=== PATIENT | female | born 2005 ===

== ENCOUNTER 2024-05-03 13:06 | Inpatient (IN) | payer BC, SELFPAY ==
--- NOTE | ~2024-05-03 | NM_ITS ---
EXAMINATION: GALO BILIARY TRACT CLINICAL HISTORY: 18 years old Female with abdominal pain, elevated LFTs TECHNIQUE: 5 mCi Tc-99m Mebrofenin was injected intravenously. Static planar images of the abdomen were obtained in the left anterior oblique views at 60 minutes. 1.1 mcg Sincalide (CCK) was infused intravenously over 30 minutes, while dynamic images of the abdomen were obtained in the left anterior oblique view. COMPARISON: CT abdomen pelvis on 05/03/2024 FINDINGS: There is prompt liver uptake of radiotracer and prompt excretion of radiotracer into bile ducts and small bowel. The gallbladder is visualized within 10 minutes. Gallbladder ejection fraction is 71%. NM/NM hepatobiliary w pharm IMPRESSION: No evidence of acute or chronic cholecystitis. Gallbladder ejection fraction of 71%. Electronically signed by: Shena Escobedo MD 05/06/2024 05:40 PM [facility]
--- NOTE | ~2024-05-03 | CT_ITS ---
EXAMINATION: CT ABDOMEN AND PELVIS WITH CONTRAST CLINICAL INFORMATION: Epigastric abdominal COMPARISON: Ultrasound abdomen earlier today TECHNIQUE: Multidetector volumetric imaging was performed from the superior aspect of the liver through the pubic symphysis with intravenous contrast. A total of 85 mL of Omnipaque 350 was utilized for the study. Sagittal and coronal reformatted images were obtained on the technologist's workstation. This CT examination was performed using dose optimization techniques as appropriate, variously including the following: *Automated exposure control *Adjustment of mA and/or kV according to patient size (this includes techniques or standardized protocols for targeted exams where dose is matched to indication/reason for exam; i.e. extremities or head) *Use of iterative reconstruction technique DLP: 346 mGy-cm FINDINGS: LUNG BASES: The visualized lung bases are unremarkable. LIVER, GALLBLADDER, AND BILIARY TREE: The liver is mildly enlarged at 18.2 cm in greatest length with normal shape. There is mild periportal edema which is nonspecific. No focal hepatic lesion or biliary ductal dilatation is present. The gallbladder is abnormal with a markedly thickened wall and enhancing mucosa, corresponding to the findings seen on the ultrasound. No definite inflammatory changes are seen in the pericholecystic fat. No calcified gallstones are seen. PANCREAS: Unremarkable. SPLEEN: The spleen is enlarged measuring 13.7 cm in greatest length. ADRENAL GLANDS: Unremarkable. KIDNEYS AND URETERS: The kidneys are normal in size, shape, and attenuation. A benign right upper pole 5.3 cm Bosniak class I renal cyst is noted along with some left upper pole parapelvic Bosniak class I cysts. These all require no additional imaging or follow up. No solid renal masses are seen. No hydronephrosis, hydroureter, or calculi seen. No perinephric stranding. BLADDER: Unremarkable. GASTROINTESTINAL TRACT: The small and large bowel are unremarkable. The appendix is likely seen and unremarkable but there is certainly no evidence to suggest the presence of appendicitis.. ABDOMINAL WALL: No significant hernia is appreciated. LYMPH NODES: Normal. VASCULAR: Unremarkable. PELVIC VISCERA: A small amount of free fluid is present in the pelvis. A retroverted uterus is present. A benign appearing 1.6 cm cyst is noted in the left ovary. The right ovary appears unremarkable. OSSEOUS STRUCTURES: Unremarkable. CT/CT abdomen pelvis w IV con IMPRESSION: 1. Abnormal gallbladder with markedly thickened wall and enhancing mucosa. No calcified gallstones are seen. No inflammatory changes are seen in the pericholecystic fat. Findings are certainly suggestive of acute cholecystitis in the correct clinical setting. 2. Mild hepatosplenomegaly. 3. Other incidental findings as described above. Fleischner guidelines were followed. Electronically signed by: Ata Calvert MD 05/04/2024 12:05 AM [facility]
--- NOTE | ~2024-05-03 | US_ITS ---
EXAMINATION: US ABDOMEN LIMITED CLINICAL INFORMATION: Elevated LFTs. COMPARISON: None available. TECHNIQUE: Real-time imaging of the right upper quadrant abdominal viscera. FINDINGS: PANCREAS: Normal. LIVER: Normal. The liver is normal in size. The liver contour is normal. Parenchymal echogenicity is normal. Right liver lobe 4.9 cm cyst. There is no intrahepatic biliary duct dilatation seen. GALLBLADDER: Gallbladder is contracted with pericholecystic fluid with circumferential wall thickening measuring up to 1.4 cm. No sonographic findings of gallstones. Positive sonographic Camargo sign. COMMON BILE DUCT: Normal in caliber measuring 0.2 cm in diameter. RIGHT KIDNEY: Normal. No hydronephrosis. No renal calculi or focal parenchymal lesions. The kidney measures 11 cm in maximum dimension. FREE FLUID: None. US/US abdomen limited IMPRESSION: Gallbladder is contracted with circumferential wall thickening and pericholecystic fluid. No sonographic findings of gallstones. Positive sonographic Cam[place] sign. These findings are equivocal for acute cholecystitis. Electronically signed by: Pat Chua MD 05/03/2024 06:04 PM [facility]
--- NOTE | 2024-05-03 13:09 | ECG_ITS ---
Test Reason : CHEST PAIN Blood Pressure : / mmHG Vent. Rate : 086 BPM Atrial Rate : 086 BPM P-R Int : 146 ms QRS Dur : 076 ms QT Int : 378 ms P-R-T Axes : 068 072 050 degrees QTc Int : 452 ms Normal sinus rhythm Normal ECG No previous ECGs available Referred By: Generic ED Physician Electronically Signed By:RUDDY YIN MD
[2024-05-03 13:30] VITALS: BP 91/52; PULSE 76; RESP 16; TEMP 36.8; O2SAT 100; BMI 20.9
--- NOTE | 2024-05-03 13:49 | ED_ITS ---
HPI - Abdominal Pain General Chief Complaint: Abdominal Pain Stated Complaint: Chest pain Time Seen by Provider: 05/03/24 19:09 Related Data Allergies Allergy/AdvReac Type Severity Reaction Status Date / Time No Known Allergies Allergy Verified 05/03/24 13:33 [facility] Social History Social History Smoked in Last 30 Days: Yes Use of substances other than those prescribed or required for medical reasons: Yes Substance Use Type: Marijuana Advance Directives: No Advance Directives Information Provided: No Do you have a plan to hurt others: No Plan Physical Exam ED Vital Signs: Vital Signs - 24 hr 05/03/24 13:30 05/03/24 19:09 05/03/24 22:50 Temperature 98.3 F 97.9 F 98.5 F Pulse Rate 76 61 68 Respiratory Rate 16 18 18 Blood Pressure 91/52 L 116/66 116/64 Pulse Oximetry 100 100 100 Oxygen Delivery Method Room Air Room Air Room Air BMI result Body Mass Index 20.9 Course Course Course Narrative: This is a Rapid Medical Examination (RME) performed by Verónica Herr PA-C in triage. Full HPI, ROS, assessment and treatment plan per primary provider in the Main ED. 18 yo female here for eval of upper abdominal pain x3 days. denies N/V/D, chest pain, dysuria. denies chance of . LMP 1 wk ago. Plan: ekg ordered initially as patient reported chest pain on arrival. will add on labs, UA, u preg Medical Decision Making Lab Data 05/03/24 14:17 05/03/24 14:17 Labs: Lab Results 05/03/24 Range/Units 14:17 WBC 9.0 (4.8-10.8) X10*3/uL RBC 4.40 (4.20-5.50) X10*6/uL Hgb 10.9 L (12.0-16.0) g/dl Hct 34.6 L (37.0-47.0) % MCV 78.6 L (80.0-98.0) fL MCH 24.8 L (27.0-33.0) pg MCHC 31.5 (31.0-35.0) g/dl RDW 16.2 H (11.0-16.0) % Plt Count 155 L (160-400) X10*3/uL MPV 11.3 (9.4-12.3) fL Immature Gran % (Auto) Cancelled Neut % (Auto) Cancelled Lymph % (Auto) Cancelled Nolan % (Auto) Cancelled Eos % (Auto) Cancelled Baso % (Auto) Cancelled Lymph # (Auto) Cancelled Nolan # (Auto) Cancelled Eos # (Auto) Cancelled Baso # (Auto) Cancelled Abs Immat Gran (auto) Cancelled Absolute Neuts (auto) Cancelled Absolute Nucleated RBC 0.000 (0.0-0.012) X10*3/uL Nucleated RBC % (auto) 0.0 (0.0-0.2) /100WBC Neutrophils % (Manual) 26 L (45-73) % Band Neutrophils % 1 L (3-5) % Lymphocytes % (Manual) 52 H (20-40) % Atypical Lymphs % (Man) 16 H (0-6) % Monocytes % (Manual) 1 L (2-11) % Eosinophils % (Manual) 2 (0-4) % Basophils % (Manual) 2 (0-2) % Abs Neuts (Manual) 2.4 (2.0-8.3) X10*3/uL Lymphocytes # (Manual) 4.7 (1.2-4.9) X10*3/uL Atyp Lymphs # (Manual) 1.4 x10*3/uL Monocytes # (Manual) 0.1 (0.1-1.2) X10*3/uL Eosinophils # (Manual) 0.2 (0.0-0.4) X10*3/uL Basophils # (Manual) 0.2 (0.0-0.2) X10*3/uL Platelet Estimate NORMAL (NORMAL) Plt Morphology Comment NORMAL RBC Morphology NOTED Polychromasia 1+ (0-2) /OIF [place] Cells 3+ (>5) /OIF Schistocytes 1+ (0-2) /OIF Sodium 137 (135-145) mmol/L Potassium 3.9 (3.3-5.1) mmol/L Chloride 107 (96-108) mmol/L Carbon Dioxide 22 (22-29) mmol/L Anion Gap 12 (12-20) BUN 6 L (9-16) mg/dL Creatinine 0.75 (0.5-1.4) mg/dL Estim Creat Clear Calc 104.1 Estimated GFR > 60 Random Glucose 82 (60-115) mg/dL Calcium 9.1 (8.4-10.2) mg/dL Magnesium 2.2 (1.6-2.6) mg/dL Total Bilirubin 1.3 H (0.0-1.0) mg/dL AST 399 H (5-31) U/L ALT 498 H (0-31) U/L Alkaline Phosphatase 292 H (39-117) U/L Troponin I High Sens < 2.7 (<3.5-17.0) ng/L Total Protein 7.6 (6.5-8.0) g/dL Albumin 4.1 (3.5-5.0) g/dL Lipase 30 (8-78) U/L Urine Color Dark Yellow Urine Appearance Clear Urine pH 5.5 (5.0-9.0) Ur Specific [place] 1.015 (1.005-1.025) Urine Protein Trace (Neg-Trace) mg/dL Urine Glucose (UA) Negative (Negative) mg/dL Urine Ketones Trace (Negative) mg/dL Urine Blood Negative (Negative) Urine Nitrite Negative (Negative) Ur Leukocyte Esterase Negative (Negative) Urine Test NEGATIVE (NEGATIVE) Medications Administered Discontinued Medications Generic Name Dose Route Start Last Admin Trade Name Freq PRN Reason Stop Dose Admin Ceftriaxone Sodium 1 gm 05/03/24 19:49 05/03/24 19:58 Ceftriaxone Sodium 1 Gm Vial IVPUSH 05/03/24 19:50 1 gm ONCE ONE Administration Metronidazole 500 mg in 100 mls @ 100 mls/hr 05/03/24 19:49 05/03/24 21:07 Flagyl IV 05/03/24 20:48 Infused ONCE ONE Infusion Iohexol 85 ml 05/03/24 20:47 05/03/24 20:47 Iohexol 350 Mg/Ml 100 Ml Infus..Btl IV 05/03/24 20:48 85 ml ONCE ONE Administration Discharge Plan Discharge Patient Disposition: Admitted As Inpatient Print Language: Tajik
[2024-05-03 14:23] LABS: Hematocrit 34.6 % (37.0-47.0); Hemoglobin 10.9 g/dl (12.0-16.0); Mean Corpuscular HGB Conc 31.5 g/dl (31.0-35.0); Mean Corpuscular Hemoglobin 24.8 pg (27.0-33.0); Mean Corpuscular Volume 78.6 fL (80.0-98.0); Mean Platelet Volume 11.3 fL (9.4-12.3); Platelet Count 155 X10*3/uL (160-400); Red Cell Distribution Width 16.2 % (11.0-16.0)
[2024-05-03 14:36] LABS: Appearance Urine Clear; Color Urine Dark Yellow; Glucose Urine UA Negative (Negative); Leukocyte Esterase Urine Negative (Negative); Nitrite Urine Negative (Negative); PH 5.5 (5.0-9.0); Specific Gravity - Urine 1.015 (1.005-1.025); Urine Blood Negative (Negative); Urine Ketones Trace mg/dL (Negative); Urine Protein Trace mg/dL (Neg-Trace)
[2024-05-03 14:37] LABS: Alanine Aminotransferase 498 U/L (0-31); Albumin Level 4.1 g/dL (3.5-5.0); Alkaline Phosphatase 292 U/L (39-117); Anion Gap 12 (12-20); Aspartate Amino Transferase 399 U/L (5-31); Bilirubin Total 1.3 mg/dL (0.0-1.0); Blood Urea Nitrogen 6 mg/dL (9-16); Calcium 9.1 mg/dL (8.4-10.2); Carbon Dioxide 22 mmol/L (22-29); Chloride 107 mmol/L (96-108); Creatinine Clr Calc Pharmacy 104.1; Estimated Glomerular Filt Rate > 60; Glucose Random 82 mg/dL (60-115); Lipase 30 U/L (8-78); Magnesium 2.2 mg/dL (1.6-2.6); Potassium 3.9 mmol/L (3.3-5.1); Sodium 137 mmol/L (135-145); Total Protein 7.6 g/dL (6.5-8.0)
[2024-05-03 14:38] LABS: UPreg QC Valid YES; Urine Pregnancy NEGATIVE (NEGATIVE)
[2024-05-03 14:46] LABS: Atypical Lymph Absolute Manual 1.4 x10*3/uL; Atypical Lymphs Percent Manual 16 % (0-6); Band Neutrophils Percent 1 % (3-5); Basophils Abs Manual 0.2 X10*3/uL (0.0-0.2); Basophils Percent Manual 2 % (0-2); Eosinophils Absolute Manual 0.2 X10*3/uL (0.0-0.4); Eosinophils Percent Manual 2 % (0-4); Lymphocytes Absolute Manual 4.7 X10*3/uL (1.2-4.9); Lymphocytes Percent Manual 52 % (20-40); Monocytes Absolute Manual 0.1 X10*3/uL (0.1-1.2); Monocytes Percent Manual 1 % (2-11); Neutrophils Absolute Manual 2.4 X10*3/uL (2.0-8.3); Neutrophils Percent Manual 26 % (45-73); Troponin-I High Sensitivity < 2.7 ng/L (<3.5-17.0)
[2024-05-03 14:50] LABS: Burr Cells 3+ (>5) /OIF; Polychromasia 1+ (0-2) /OIF; RBC Morphology NOTED; Schistocytes 1+ (0-2) /OIF
[2024-05-03 15:20] LABS: Platelet Estimate NORMAL (NORMAL); Platelet Morphology Comment NORMAL
[2024-05-03 19:09] VITALS: BP 116/66; PULSE 61; RESP 18; TEMP 36.6; O2SAT 100
--- NOTE | 2024-05-03 19:39 | PC.NURSE ---
Pt a&ox3, no signs of distress Pt reporting 3/10 upper abd pain x3 days w/ intermittent nausea no vomiting Pain is worse w/ inspiration Pt denies cough, congestion, and sob Plan of care ongoing.
--- NOTE | 2024-05-03 19:42 | ED.ABDPAIN ---
HPI - Abdominal Pain General Chief Complaint: Abdominal Pain Stated Complaint: Chest pain Time Seen by Provider: 05/03/24 19:09 History of Present Illness HPI narrative: Patient is 18 years old presents today with having abdominal pain since Wednesday morning. Wednesday night patient went to eat some [place] food. She has had the same food in the past. There is no fever no chills. Then the belly pain started it was unrelenting is been ongoing for the last 3 days. No fever no chills. Positive bowel movement. Positive nausea. Her last menstrual period was about a week ago. Does not think she is . Has been able to have bowel movement. Urinate without any difficulties. Patient from home. Related Data Allergies Allergy/AdvReac Type Severity Reaction Status Date / Time No Known Allergies Allergy Verified 05/03/24 13:33 Review of Systems Review of Systems Positive abdominal pain Yes all other systems are reviewed and are negative [facility] Past Medical History Attestation statement: The following information was validated with the patient. Social History Social History Smoked in Last 30 Days: Yes Use of substances other than those prescribed or required for medical reasons: Yes Substance Use Type: Marijuana Advance Directives: No Advance Directives Information Provided: No Do you have a plan to hurt others: No Plan Physical Exam ED Vital Signs: Vital Signs - 24 hr 05/03/24 13:30 05/03/24 19:09 05/03/24 22:50 Temperature 98.3 F 97.9 F 98.5 F Pulse Rate 76 61 68 Respiratory Rate 16 18 18 Blood Pressure 91/52 L 116/66 116/64 Pulse Oximetry 100 100 100 Oxygen Delivery Method Room Air Room Air Room Air BMI result Body Mass Index 20.9 Appearance: Alert. Oriented X3. No acute distress. Eyes: Pupils equal, round and reactive to light. ENT: Pharynx normal. Neck: Normal inspection. Neck supple. No lymph nodes noted. No crepitus CVS: Normal heart rate and rhythm. Pulses normal. Normal S1 and S2 Respiratory: No respiratory distress. Breath sounds normal. No Wheezing. No rales Abdomen: Positive right upper quadrant tenderness no rebound. No rigidity. No distention. good BS x4 Skin: Skin warm and dry. Normal skin color. Normal skin turgor. Extremities: No lower extremity edema. Neurovascular intact to all extremities. No Lacerations. No Rash Neuro: Oriented X 3. No motor deficit. No sensory deficit. Moving all extermities. No slurred speech Medical Decision Making Medical Decision Making [facility] Narrative: Patient is 18 years old presents today with having abdominal pain in the epigastric area. LFTs are significantly elevated. Question etiology in ultrasound was done. The ultrasound showed gallbladder wall thickening but there was no evidence of any gallstone. Given patient's age and the findings on the ultrasound. Surgery was consulted. Case discussed with Dr. Diez from surgery. Ira[place] patient's condition not consistent with cholecystitis. A CT scan of the abdomen pelvis was ordered for further evaluation for other pathology hepatitis panel was ordered. CT scan did not show any additional changes in finding it did find the thickened gallbladder wall consistent with possible cholecystitis. Will admit patient for the medical service for further evaluation. Question hepatitis. Currently in stable condition. A dose of Rocephin was given along with Flagyl empirically. Patient is currently in stable condition awaiting admission Differential Diagnosis Differential Diagnoses: The differential diagnosis associated with the presentation includes Hepatitis, cholecystitis Admission/Observation Consideration of admission/observation: Escalation of care including admission/observation considered Consult Healthcare Provider Management of the patient was discussed with: Hospitalist and Therapeutic Recreation Director (Surgery) Lab Data [facility] Lab Attestation statement: I reviewed the patient's lab results. 05/03/24 14:17 05/03/24 14:17 Labs: Lab Results 05/03/24 Range/Units 14:17 WBC 9.0 (4.8-10.8) X10*3/uL RBC 4.40 (4.20-5.50) X10*6/uL Hgb 10.9 L (12.0-16.0) g/dl Hct 34.6 L (37.0-47.0) % MCV 78.6 L (80.0-98.0) fL MCH 24.8 L (27.0-33.0) pg MCHC 31.5 (31.0-35.0) g/dl RDW 16.2 H (11.0-16.0) % Plt Count 155 L (160-400) X10*3/uL MPV 11.3 (9.4-12.3) fL Immature Gran % (Auto) Cancelled Neut % (Auto) Cancelled Lymph % (Auto) Cancelled [place] % (Auto) Cancelled Eos % (Auto) Cancelled Baso % (Auto) Cancelled Lymph # (Auto) Cancelled [place] # (Auto) Cancelled Eos # (Auto) Cancelled Baso # (Auto) Cancelled Abs Immat Gran (auto) Cancelled Absolute Neuts (auto) Cancelled Absolute Nucleated RBC 0.000 (0.0-0.012) X10*3/uL Nucleated RBC % (auto) 0.0 (0.0-0.2) /100WBC Neutrophils % (Manual) 26 L (45-73) % Band Neutrophils % 1 L (3-5) % Lymphocytes % (Manual) 52 H (20-40) % Atypical Lymphs % (Man) 16 H (0-6) % Monocytes % (Manual) 1 L (2-11) % Eosinophils % (Manual) 2 (0-4) % Basophils % (Manual) 2 (0-2) % Abs Neuts (Manual) 2.4 (2.0-8.3) X10*3/uL Lymphocytes # (Manual) 4.7 (1.2-4.9) X10*3/uL Atyp Lymphs # (Manual) 1.4 x10*3/uL Monocytes # (Manual) 0.1 (0.1-1.2) X10*3/uL Eosinophils # (Manual) 0.2 (0.0-0.4) X10*3/uL Basophils # (Manual) 0.2 (0.0-0.2) X10*3/uL Platelet Estimate NORMAL (NORMAL) Plt Morphology Comment NORMAL RBC Morphology NOTED Polychromasia 1+ (0-2) /OIF Magn[place] Cells 3+ (>5) /OIF Schistocytes 1+ (0-2) /OIF Sodium 137 (135-145) mmol/L Potassium 3.9 (3.3-5.1) mmol/L Chloride 107 (96-108) mmol/L Carbon Dioxide 22 (22-29) mmol/L Anion Gap 12 (12-20) BUN 6 L (9-16) mg/dL Creatinine 0.75 (0.5-1.4) mg/dL Estim Creat Clear Calc 104.1 Estimated GFR > 60 Random Glucose 82 (60-115) mg/dL Calcium 9.1 (8.4-10.2) mg/dL Magnesium 2.2 (1.6-2.6) mg/dL Total Bilirubin 1.3 H (0.0-1.0) mg/dL AST 399 H (5-31) U/L ALT 498 H (0-31) U/L Alkaline Phosphatase 292 H (39-117) U/L Troponin I High Sens < 2.7 (<3.5-17.0) ng/L Total Protein 7.6 (6.5-8.0) g/dL Albumin 4.1 (3.5-5.0) g/dL Lipase 30 (8-78) U/L Urine Color Dark Yellow Urine Appearance Clear Urine pH 5.5 (5.0-9.0) Ur Specific [place] 1.015 (1.005-1.025) Urine Protein Trace (Neg-Trace) mg/dL Urine Glucose (UA) Negative (Negative) mg/dL Urine Ketones Trace (Negative) mg/dL Urine Blood Negative (Negative) Urine Nitrite Negative (Negative) Ur Leukocyte Esterase Negative (Negative) Urine Test NEGATIVE (NEGATIVE) Independent Interpretation I performed an independent interpretation of an: CT Scan Radiology Impression Discussion of test interpretation with radiology: I have reviewed the radiologist's reading. Medications Administered Discontinued Medications Generic Name Dose Route Start Last Admin Trade Name Freq PRN Reason Stop Dose Admin Ceftriaxone Sodium 1 gm 05/03/24 19:49 05/03/24 19:58 Ceftriaxone Sodium 1 Gm Vial IVPUSH 05/03/24 19:50 1 gm ONCE ONE Administration Metronidazole 500 mg in 100 mls @ 100 mls/hr 05/03/24 19:49 05/03/24 21:07 Flagyl IV 05/03/24 20:48 Infused ONCE ONE Infusion Iohexol 85 ml 05/03/24 20:47 05/03/24 20:47 Iohexol 350 Mg/Ml 100 Ml Infus..Btl IV 05/03/24 20:48 85 ml ONCE ONE Administration Discharge Plan Discharge Clinical Impression: Hepatitis, Abdominal pain Patient Disposition: Admitted As Inpatient Print Language: [place]araguan
[2024-05-03] MEDS: cefTRIAXone sodium 1 GM VIAL IVPUSH (19:58)
[2024-05-03] MEDS: metroNIDAZOLE/NS 500 MG/100 ML PIGGYBACK 100 MG IV (19:59)
--- NOTE | 2024-05-03 20:17 | PC.NURSE ---
Pt medicated per [facility] Plan of care ongoing.
[2024-05-03] MEDS: iohexoL 350 MG/ML 100 ML INFUS..BTL 85 ML IV (20:47)
[2024-05-03 22:50] VITALS: BP 116/64; PULSE 68; RESP 18; TEMP 36.9; O2SAT 100
[2024-05-04] VITALS (7 sets, daily range): BP systolic 98–123; BP diastolic 51–85; PULSE 58–88; RESP 14–16; TEMP 36.2–37.1; O2SAT 96–100
--- NOTE | 2024-05-04 00:29 | PM.IMHP ---
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 The patient reports having pain and nausea after having food at an [employer] that she had tried before. No chest pain, palpitations, SOB, no vomiting or diarrhea or urinary symptoms but having nausea. her LMP was 1 week ago. An US and CT scan of abdomen showing abnormal gallbladder with thickened wall with no significant stones but suggestive of acute cholecystitis as it reports pericholecystic fluids and positive sonographine [place] signs. Discussed with surgeon who did not think it is a real acute cholecystitis. Will be admitted for further work up and management. Review of Systems Review of Systems: No fever, chills or weakness No chest pain, palpitation No shortness of breath or coughing reporting abdominal pain, nausea but no vomiting No urinary symptoms No any rash or wounds PMFSH Social History Smoked in Last 30 Days: Yes Use of substances other than those prescribed or required for medical reasons: Yes Substance Use Type: Marijuana Advance Directives: No Advance Directives Information Provided: No Do you have a plan to hurt others: No Plan Meds Allergies Allergy/AdvReac Type Severity Reaction Status Date / Time No Known Allergies Allergy Verified 05/03/24 13:33 Physical Exam Vital Signs and Narrative: Vital Signs: Last Vital Signs Temp 98.5 F 05/03/24 22:50 Pulse 68 05/03/24 22:50 Resp 18 05/03/24 22:50 BP 116/64 05/03/24 22:50 Pulse Ox 100 05/03/24 22:50 O2 Del Method Room Air 05/03/24 22:50 BMI result Body Mass Index 20.9 Const: Other: Constitutional : Awake, interactive, not in distress Neck : Normal inspection, Supple Cardiovascular : RRR, no JVP, no lower extremity edema Respiratory : good bilateral air entry, no crackles, wheezes or rhonchi Gastrointestinal: soft, lax, Normal bowel sounds, mild RUQ tenderness with no clear surgical signs Skin : Warm, Dry Neurological : Alert & oriented x3, No focal deficit Results Labs 05/03/24 14:17 05/03/24 14:17 Labs: Laboratory Results - last 24 hr 05/03/24 14:17 MCV 78.6 L MCH 24.8 L MCHC 31.5 RDW 16.2 H Plt Count 155 L MPV 11.3 Immature Gran % (Auto) Cancelled Neut % (Auto) Cancelled Lymph % (Auto) Cancelled [place] % (Auto) Cancelled Eos % (Auto) Cancelled Baso % (Auto) Cancelled Lymph # (Auto) Cancelled [place] # (Auto) Cancelled Eos # (Auto) Cancelled Baso # (Auto) Cancelled Abs Immat Gran (auto) Cancelled Absolute Neuts (auto) Cancelled Absolute Nucleated RBC 0.000 Nucleated RBC % (auto) 0.0 Neutrophils % (Manual) 26 L Band Neutrophils % 1 L Lymphocytes % (Manual) 52 H Atypical Lymphs % (Man) 16 H Monocytes % (Manual) 1 L Eosinophils % (Manual) 2 Basophils % (Manual) 2 Abs Neuts (Manual) 2.4 Lymphocytes # (Manual) 4.7 Atyp Lymphs # (Manual) 1.4 Monocytes # (Manual) 0.1 Eosinophils # (Manual) 0.2 Basophils # (Manual) 0.2 Platelet Estimate NORMAL Plt Morphology Comment NORMAL RBC Morphology NOTED Polychromasia 1+ (0-2) Branch Cells 3+ (>5) Schistocytes 1+ (0-2) Anion Gap 12 Estim Creat Clear Calc 104.1 Estimated GFR > 60 Random Glucose 82 Calcium 9.1 Magnesium 2.2 Total Bilirubin 1.3 H AST 399 H ALT 498 H Alkaline Phosphatase 292 H Troponin I High Sens < 2.7 Total Protein 7.6 Albumin 4.1 Lipase 30 Urine Color Dark Yellow Urine Appearance Clear Urine pH 5.5 Ur Specific [place] 1.015 Urine Protein Trace Urine Glucose (UA) Negative Urine Ketones Trace Urine Blood Negative Urine Nitrite Negative Ur Leukocyte Esterase Negative Urine Test NEGATIVE Imaging Radiologist's Impressions: Impressions Abdomen Ultrasound 05/03/24 16:24 IMPRESSION: Gallbladder is contracted with circumferential wall thickening and pericholecystic fluid. No sonographic findings of gallstones. Positive sonographic [place] sign. These findings are equivocal for acute cholecystitis. Electronically signed by: Pat Chua MD 05/03/2024 06:04 PM [facility] [place] CT 05/03/24 20:48 IMPRESSION: 1. Abnormal gallbladder with markedly thickened wall and enhancing mucosa. No calcified gallstones are seen. No inflammatory changes are seen in the pericholecystic fat. Findings are certainly suggestive of acute cholecystitis in the correct clinical setting. 2. Mild hepatosplenomegaly. 3. Other incidental findings as described above. Fleischner guidelines were followed. 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 Acute Transaminitis with possible Acute cholecystitis Could be passing stone, infection, Hepatitis PEnding serology US and CT scan as reported Surgery consult IVF for now IV Ceftriaxone and Flagyl given in ED clears for now Zofran PRN IV Toradol PRN for pain trend LFT DVT PPx Heparin SC The patient will be monitored Quality Stroke Does the patient have a stroke diagnosis?: No VTE Prior VTE?: No VTE Risk Level:: Medical - moderate - high VTE Device Contraindication: Treatment Not Indicated VTE Drug Contraindication: N/A - Med Ordered
[2024-05-04] MEDS: Lactated Ringers 1,000 ML 100 ML IVCONT ×2 (03:09→13:28)
[2024-05-04] MEDS: Heparin Sodium,Porcine 5,000 UNIT/ML VIAL 5000 UNIT SUBCUT ×3 (03:11→18:11)
--- NOTE | 2024-05-04 03:16 | PC.NURSE ---
Pt medicated per aug Pt resting in bed, with friend. Plan of care ongoing.
[2024-05-04 04:12] LABS: HBS Num1 12.35 mIU/mL (0-7.99); HBc Num1 0.29 S/CO (0.00-0.79); HBsAGNum1 0.27 S/CO (0.00-0.99); Hepatitis A Antibody IgG REACTIVE (Nonreactive); Hepatitis A Antibody IgM 0.32 Index (0-0.79); Hepatitis B Core Antibody Nonreactive (Nonreactive); Hepatitis B Surface Antigen Negative (Negative); ~Hepatitis A Antibody IgG 11.43 S/CO (0.00-0.99); ~Hepatitis A Antibody IgM Nonreactive (Nonreactive); ~Hepatitis B Surface Antibody REACTIVE (Nonreactive); ~Hepatitis C Antibody Nonreactive (Nonreactive)
[2024-05-04] MEDS: metroNIDAZOLE/NS 500 MG/100 ML PIGGYBACK 100 MG IV ×3 (04:40→20:54)
[2024-05-04 04:46] LABS: Hematocrit 29.4 % (37.0-47.0); Hemoglobin 9.3 g/dl (12.0-16.0); Mean Corpuscular HGB Conc 31.6 g/dl (31.0-35.0); Mean Corpuscular Hemoglobin 24.5 pg (27.0-33.0); Mean Corpuscular Volume 77.4 fL (80.0-98.0); Mean Platelet Volume 11.1 fL (9.4-12.3); Platelet Count 143 X10*3/uL (160-400); Red Cell Distribution Width 16.2 % (11.0-16.0); White Blood Count 10.6 X10*3/uL (4.8-10.8)
--- NOTE | 2024-05-04 04:46 | PC.NURSE ---
Pt medicated per aug. Plan of care ongoing.
[2024-05-04 05:04] LABS: Alanine Aminotransferase 463 U/L (0-31); Albumin Level 3.6 g/dL (3.5-5.0); Alkaline Phosphatase 261 U/L (39-117); Anion Gap 14 (12-20); Aspartate Amino Transferase 354 U/L (5-31); Bilirubin Total 0.9 mg/dL (0.0-1.0); Blood Urea Nitrogen 8 mg/dL (9-16); Calcium 8.4 mg/dL (8.4-10.2); Carbon Dioxide 20 mmol/L (22-29); Chloride 107 mmol/L (96-108); Creatinine Clr Calc Pharmacy 118.3; Estimated Glomerular Filt Rate > 60; Glucose Random 101 mg/dL (60-115); Potassium 3.5 mmol/L (3.3-5.1); Sodium 137 mmol/L (135-145); Total Protein 6.6 g/dL (6.5-8.0)
--- NOTE | 2024-05-04 07:18 | PC.NURSE ---
Pt arrives to overflow from main ED. A&Ox3 LR running at 100 ml/hr. Pt oriented to overflow unit and all questions answered to satisfaction. Reviewed the importance of clear liquid diet and Pt demonstrated understanding of this information. Pt is currently resting comfortably with eye closed, partner at bedside. NAD noted, no complaints offered upon arrival.
--- NOTE | 2024-05-04 07:50 | PC.NURSE ---
Surgery and Hospitalist at bedside to see Pt. Pt with room assignment at this time, will be proceeding to inpatient floor.
--- NOTE | 2024-05-04 08:02 | PC.NURSE ---
Med rec completed. Pt reports no home medications.
--- NOTE | 2024-05-04 08:20 | P.CONGS_ITS ---
History of Present Illness Consult details Consult date: 05/04/24 Narrative: 18-year-old female admitted last night for abdominal pain. She says this has been ongoing for about 3 days now. She has describes this as on the right upper quadrant. She describes the pain as constant She describes some nausea as well. She denies any fever or chills. She denies any diarrhea She had also mentioned having some chest pain. She otherwise says she has been always healthy. Review of Systems 2 Constitutional: Constitutional: Denies chills and Denies fever(s) Cardiovascular: Cardiovascular: Denies chest pain, Denies dyspnea and Denies dyspnea on exertion Respiratory: Respiratory: Denies cough, Denies dyspnea and Denies dyspnea on exertion Gastrointestinal: Gastrointestinal: Denies hematochezia and Denies change in bowel habits Genitourinary: Genitourinary: Denies hematuria Musculoskeletal: Musculoskeletal: Denies back pain and Denies limited range of motion Neurologic: Denies focal weakness and Denies convulsions Psychiatric: Psychiatric: Denies depression and Denies mood swings [facility] Social History Social History Household Members: Family Housing: House Do you presently have visiting nurse or other home services: No Patient Tobacco Use Status: Current someday Tobacco user Tobacco use type: Cigarette Smoked in Last 30 Days: Yes e-Cigarette/Vaping Use: Currently Using Patient Interested in Nicotine Replacement: No Patient Given Instructions on How to Stop Smoking: No (declined.) Date Education Initiated: 05/04/24 Second Hand Smoke Exposure: Yes Use of substances other than those prescribed or required for medical reasons: Yes Substance Use Type: Marijuana Substance Use Frequency: Socially Last Used Substance: Weeks (ago) Currently Displaying Signs/Symptoms of Drug Intoxication Withdrawal: No Have you been hit, kicked, punched, or otherwise hurt by someone within the past year? If so, by whom?: No Do you feel safe in your current relationship?: Yes Is there a partner from a previous relationship who is making you feel unsafe now?: No Are you made to feel afraid or neglected: No Advance Directives: No Advance Directives Information Provided: No Advance Directives on File: No Do you have a plan to hurt others: No Plan Recently lost weight without trying: Yes How much weight loss: Unsure Eating poorly because of decreased appetite: Yes Nutrition screen score: 5 Patient : No : No Poor oral hygiene: No service: No Meds Allergies Allergy/AdvReac Type Severity Reaction Status Date / Time No Known Allergies Allergy Verified 05/03/24 13:33 Active Medications: Current Medications Acetaminophen (Acetaminophen 325 Mg Tablet) 650 mg PO Q6H PRN PRN Reason: Pain, Mild (Pain Scale 1-3), fever or headache Calcium Carbonate (Calcium Carbonate 750 Mg Tab.Chew) 750 mg PO Q4H PRN PRN Reason: Heartburn Ceftriaxone Sodium (Ceftriaxone Sodium 1 Gm Vial) 1 gm IVPUSH Q24H [facility] Heparin Sodium (Porcine) (Heparin Sodium,Porcine 5,000 Unit/Ml Vial) 5,000 unit SUBCUT Q8H [facility] Last Admin: 05/04/24 03:11 Dose: 5,000 unit Lactated Ringer's (Lr) 1,000 mls @ 100 mls/hr IVCONT .Q10H [facility] Last Admin: 05/04/24 03:09 Dose: 100 mls/hr Metronidazole (Flagyl) 500 mg in 100 mls @ 100 mls/hr IV Q8H [facility] Last Infusion: 05/04/24 06:00 Dose: Infused Ketorolac Tromethamine (Ketorolac Tromethamine 30 Mg/Ml Vial) 30 mg IVPUSH Q6H PRN PRN Reason: Pain, Severe (Pain Scale 7-10) Stop: 05/09/24 02:19 Magnesium Hydroxide (Milk Of Magnesia 30 Ml Oral.Susp) 30 ml PO DAILY PRN PRN Reason: Constipation Melatonin (Melatonin 3 Mg Tablet) 6 mg PO BEDTIME PRN PRN Reason: Insomnia Ondansetron HCl (Ondansetron Hcl 4 Mg/2 Ml Vial) 4 mg IVPUSH Q8H PRN PRN Reason: Nausea and Vomiting Sodium Chloride (0.9 % Sodium Chloride Flush 3 Ml Syringe) 3 ml IVFLUSH QSHIFT [facility] Last Admin: 05/04/24 08:02 Dose: Not Given Physical Exam 2 Vital Signs: Vital Signs: Last Vital Signs Temp 98.0 F 05/04/24 07:14 Pulse 70 05/04/24 07:14 Resp 16 05/04/24 07:14 BP 98/58 L 05/04/24 07:14 Pulse Ox 96 05/04/24 07:14 O2 Del Method Room Air 05/04/24 07:14 BMI result Body Mass Index 20.9 Results Labs 05/07/24 10:01 05/04/24 04:18 Labs: Abnormal lab results 05/03/24 05/04/24 Range/Units 14:17 04:18 RBC 3.80 L (4.20-5.50) X10*6/uL Hgb 10.9 L 9.3 L (12.0-16.0) g/dl Hct 34.6 L 29.4 L (37.0-47.0) % MCV 78.6 L 77.4 L (80.0-98.0) fL MCH 24.8 L 24.5 L (27.0-33.0) pg RDW 16.2 H 16.2 H (11.0-16.0) % Plt Count 155 L 143 L (160-400) X10*3/uL Neutrophils % (Manual) 26 L (45-73) % Band Neutrophils % 1 L (3-5) % Lymphocytes % (Manual) 52 H (20-40) % Atypical Lymphs % (Man) 16 H (0-6) % Monocytes % (Manual) 1 L (2-11) % Carbon Dioxide 20 L (22-29) mmol/L BUN 6 L 8 L (9-16) mg/dL Total Bilirubin 1.3 H (0.0-1.0) mg/dL AST 399 H 354 H (5-31) U/L ALT 498 H 463 H (0-31) U/L Alkaline Phosphatase 292 H 261 H (39-117) U/L Short CBC 05/03/24 05/04/24 Range/Units 14:17 04:18 WBC 9.0 10.6 (4.8-10.8) X10*3/uL Hgb 10.9 L 9.3 L (12.0-16.0) g/dl Hct 34.6 L 29.4 L (37.0-47.0) % Plt Count 155 L 143 L (160-400) X10*3/uL BMP 05/03/24 05/04/24 14:17 04:18 Sodium 137 137 Potassium 3.9 3.5 Chloride 107 107 Carbon Dioxide 22 20 L BUN 6 L 8 L Creatinine 0.75 0.66 Calcium 9.1 8.4 D Liver Function 11/06/24 11/07/24 Range/Units 14:17 04:18 Total Bilirubin 1.3 H 0.9 (0.0-1.0) mg/dL AST 399 H 354 H (5-31) U/L ALT 498 H 463 H (0-31) U/L Alkaline Phosphatase 292 H 261 H (39-117) U/L Albumin 4.1 3.6 (3.5-5.0) g/dL Urine 05/03/24 Range/Units 14:17 Urine Color Dark Yellow Urine Appearance Clear Urine pH 5.5 (5.0-9.0) Ur Specific [place] 1.015 (1.005-1.025) Urine Protein Trace (Neg-Trace) mg/dL Urine Glucose (UA) Negative (Negative) mg/dL Urine Test NEGATIVE (NEGATIVE) All other labs normal. Assessment and Plan (1) Hepatitis: Status: Acute She was admitted for an upper quadrant pain with ultrasound showing a contracted gallbladder with no gallstones, some pericholecystic fluid. Her AST and ALT were markedly elevated. Overall clinical findings are consistent more of a liver parenchymal disease/ hepatitis. Her gallbladder is contracted without any gallstones so acute cholecystitis is unlikely. The fluid seen around the area is likely secondary to hepatitis. Her abdominal exam is benign. She does not appear septic in his actually comfortable Her diet can be advanced later today and we will follow along while she is in the hospital. No surgical intervention appears to warranted at this time. Procedures Date of Service Date of Service: 05/10/24
--- NOTE | 2024-05-04 08:20 | PC.NURSE ---
Pts mother Kemi calls inquiring about an update; states she will be traveling from [place]. Pt gives this RN verbal permission to speak with mother regarding her care and medical disposition.
--- NOTE | 2024-05-04 09:00 | PHA.MEDREC ---
Addendum entered by Jaymie Berrios RPh 05/04/24 09:07: Reviewed by [facility] Original Note: Pharmacy Consult ? Medication Reconciliation Pharmacy reviewed med rec done by nursing. No Known Home Meds imputed. I spoke to patient and she confirmed she is not taking anything right now.
[2024-05-04] MEDS: Ketorolac Tromethamine 30 MG/ML VIAL IVPUSH ×2 (09:48→18:19)
[2024-05-04] MEDS: ondansetron HCL 4 MG/2 ML VIAL IVPUSH (09:48)
--- NOTE | 2024-05-04 09:54 | MHC.CM.PN ---
Patient from [place], [place]. Current student @ [employer] and staying in dorm on campus. Functionally independent. Denies use of DME or services. Has a PCP in [place]. Cannot recall name. Has health center on campus. No HCP. CM provided education and offered assistance. Patient declined. DP: Goal is return to dorm, self care. Girlfriend to transport.
--- NOTE | 2024-05-04 11:45 | HO.PM.IMPN ---
Subjective Subjective Date of Service: 05/04/24 Interval History: f/u on abdominal pain and elevated lfts she is feeling better Physical Exam Vital Signs: Vital Signs: Last Vital Signs Temp 97.4 F 05/04/24 09:42 Pulse 88 05/04/24 09:42 Resp 16 05/04/24 09:42 BP 123/85 05/04/24 09:42 Pulse Ox 98 05/04/24 09:42 O2 Del Method Room Air 05/04/24 09:42 BMI result Body Mass Index 20.9 Const: Other: General: AO X 3, no acute distress Resp: CTA bilateral CVS: S1,S2,RRR GI: +BS, NT, no distention Skin: No rash Neuro: motor grossly intact Psych: appropriate affect Objective Data Active Medications Acetaminophen (Acetaminophen 325 Mg Tablet) 650 mg PO Q6H PRN PRN Reason: Pain, Mild (Pain Scale 1-3), fever or headache Calcium Carbonate (Calcium Carbonate 750 Mg Tab.Chew) 750 mg PO Q4H PRN PRN Reason: Heartburn Ceftriaxone Sodium (Ceftriaxone Sodium 1 Gm Vial) 1 gm IVPUSH Q24H [facility] Heparin Sodium (Porcine) (Heparin Sodium,Porcine 5,000 Unit/Ml Vial) 5,000 unit SUBCUT Q8H [facility] Last Admin: 05/04/24 09:48 Dose: 5,000 unit Documented By: JANESSA Lactated Ringer's (Lr) 1,000 mls @ 100 mls/hr IVCONT .Q10H [facility] Last Admin: 05/04/24 03:09 Dose: 100 mls/hr Documented By: MARCOS Metronidazole (Flagyl) 500 mg in 100 mls @ 100 mls/hr IV Q8H [facility] Last Infusion: 05/04/24 06:00 Dose: Infused Documented By: MARCOS Ketorolac Tromethamine (Ketorolac Tromethamine 30 Mg/Ml Vial) 30 mg IVPUSH Q6H PRN PRN Reason: Pain, Severe (Pain Scale 7-10) Stop: 05/09/24 02:19 Last Admin: 05/04/24 09:48 Dose: 30 mg Documented By: JANESSA Magnesium Hydroxide (Milk Of Magnesia 30 Ml Oral.Susp) 30 ml PO DAILY PRN PRN Reason: Constipation Melatonin (Melatonin 3 Mg Tablet) 6 mg PO BEDTIME PRN PRN Reason: Insomnia Ondansetron HCl (Ondansetron Hcl 4 Mg/2 Ml Vial) 4 mg IVPUSH Q8H PRN PRN Reason: Nausea and Vomiting Last Admin: 05/04/24 09:48 Dose: 4 mg Documented By: JANESSA Sodium Chloride (0.9 % Sodium Chloride Flush 3 Ml Syringe) 3 ml IVFLUSH QSHIFT [facility] Last Admin: 05/04/24 08:02 Dose: Not Given Documented By: GARCÍA Non-Admin Reason: IV Running Labs 05/04/24 04:18 05/04/24 04:18 Labs: Laboratory Results - last 24 hr 05/03/24 05/03/24 05/04/24 14:17 21:02 04:18 MCV 78.6 L 77.4 L MCH 24.8 L 24.5 L MCHC 31.5 31.6 RDW 16.2 H 16.2 H Plt Count 155 L 143 L MPV 11.3 11.1 Immature Gran % (Auto) Cancelled Neut % (Auto) Cancelled Lymph % (Auto) Cancelled [place] % (Auto) Cancelled Eos % (Auto) Cancelled Baso % (Auto) Cancelled Lymph # (Auto) Cancelled [place] # (Auto) Cancelled Eos # (Auto) Cancelled Baso # (Auto) Cancelled Abs Immat Gran (auto) Cancelled Absolute Neuts (auto) Cancelled Absolute Nucleated RBC 0.000 0.000 Nucleated RBC % (auto) 0.0 0.0 Neutrophils % (Manual) 26 L Band Neutrophils % 1 L Lymphocytes % (Manual) 52 H Atypical Lymphs % (Man) 16 H Monocytes % (Manual) 1 L Eosinophils % (Manual) 2 Basophils % (Manual) 2 Abs Neuts (Manual) 2.4 Lymphocytes # (Manual) 4.7 Atyp Lymphs # (Manual) 1.4 Monocytes # (Manual) 0.1 Eosinophils # (Manual) 0.2 Basophils # (Manual) 0.2 Platelet Estimate NORMAL Plt Morphology Comment NORMAL RBC Morphology NOTED Polychromasia 1+ (0-2) Magnus Cells 3+ (>5) Schistocytes 1+ (0-2) Anion Gap 12 14 Estim Creat Clear Calc 104.1 118.3 Estimated GFR > 60 > 60 Random Glucose 82 101 Calcium 9.1 8.4 D Magnesium 2.2 Total Bilirubin 1.3 H 0.9 AST 399 H 354 H ALT 498 H 463 H Alkaline Phosphatase 292 H 261 H Troponin I High Sens < 2.7 Total Protein 7.6 6.6 Albumin 4.1 3.6 Lipase 30 Urine Color Dark Yellow Urine Appearance Clear Urine pH 5.5 Ur Specific [place] 1.015 Urine Protein Trace Urine Glucose (UA) Negative Urine Ketones Trace Urine Blood Negative Urine Nitrite Negative Ur Leukocyte Esterase Negative Urine Test NEGATIVE Hepatitis A IgG Ab REACTIVE Hepatitis A IgM Ab Nonreactive Hep Bs Antigen Negative Hep Bs Antibody REACTIVE Hep B Core Total Ab Nonreactive Hepatitis C Ab (EIA) Nonreactive Assessment and Plan (1) Hepatitis: Status: Acute (2) Transaminitis: Status: Acute (3) Cholecystitis: Status: Acute Plan A 18 years old with no significant PMH presents to ED with abdominal pain for 2 days [employer]. Acute Transaminitis, negative hep serology, ultrasound showing a contracted gallbladder with no gallstones, some pericholecystic fluid. Her AST and ALT were markedly elevated but trending down ? liver parenchyma disease -continue empiric abx -surgery following -get gi consult -follow lfts -advance diet DVT PPx Heparin SC The patient will be monitored Quality Stroke Does the patient have a stroke diagnosis?: No VTE Prior VTE?: No VTE Risk Level:: Medical - moderate - high VTE Device Contraindication: Treatment Not Indicated VTE Drug Contraindication: N/A - Med Ordered
[2024-05-04] MEDS: cefTRIAXone sodium 1 GM VIAL IVPUSH (20:49)
[2024-05-05] MEDS: Lactated Ringers 1,000 ML 100 ML IVCONT ×2 (00:33→10:16)
[2024-05-05] MEDS: Heparin Sodium,Porcine 5,000 UNIT/ML VIAL 5000 UNIT SUBCUT ×3 (02:08→19:41)
[2024-05-05 03:17] VITALS: BP 102/63; PULSE 63; RESP 14; TEMP 37.1; O2SAT 98
[2024-05-05] MEDS: metroNIDAZOLE/NS 500 MG/100 ML PIGGYBACK 100 MG IV ×3 (04:09→20:46)
[2024-05-05 07:02] LABS: Alanine Aminotransferase 517 U/L (0-31); Albumin Level 3.3 g/dL (3.5-5.0); Alkaline Phosphatase 244 U/L (39-117); Aspartate Amino Transferase 452 U/L (5-31); Bilirubin Direct 0.4 mg/dL (0.0-0.5); Bilirubin Total 0.7 mg/dL (0.0-1.0); Total Protein 6.1 g/dL (6.5-8.0)
[2024-05-05 07:53] VITALS: BP 98/58; PULSE 84; RESP 16; TEMP 37.7; O2SAT 99
--- NOTE | 2024-05-05 08:46 | P.PNGS_ITS ---
Subjective Subjective Date of Service: 05/05/24 Interval history: Feels better Says pain very minimal No nausea or vomiting No events reported overnight Physical Exam 2 Vital Signs: Vital Signs: Last Vital Signs Temp 99.8 F 05/05/24 07:53 Pulse 84 05/05/24 07:53 Resp 16 05/05/24 07:53 BP 98/58 L 05/05/24 07:53 Pulse Ox 99 05/05/24 07:53 O2 Del Method Room Air 05/05/24 07:53 O2 Flow Rate 99 05/04/24 19:49 BMI result Body Mass Index 20.9 Const: General: comfortable and no acute distress Resp: Effort & Inspection: normal respiratory effort Cardio: Rate: regular rate GI: Palpation (GI): Soft to palpation, not firm, nontender and no guarding Objective Data Active Medications Acetaminophen (Acetaminophen 325 Mg Tablet) 650 mg PO Q6H PRN PRN Reason: Pain, Mild (Pain Scale 1-3), fever or headache Calcium Carbonate (Calcium Carbonate 750 Mg Tab.Chew) 750 mg PO Q4H PRN PRN Reason: Heartburn Ceftriaxone Sodium (Ceftriaxone Sodium 1 Gm Vial) 1 gm IVPUSH Q24H [facility] Last Admin: 05/04/24 20:49 Dose: 1 gm Documented By: MAGGIE Heparin Sodium (Porcine) (Heparin Sodium,Porcine 5,000 Unit/Ml Vial) 5,000 unit SUBCUT Q8H [facility] Last Admin: 05/05/24 02:08 Dose: 5,000 unit Documented By: MAGGIE Lactated Ringer's (Lr) 1,000 mls @ 100 mls/hr IVCONT .Q10H [facility] Last Admin: 05/05/24 00:33 Dose: 100 mls/hr Documented By: MAGGIE Metronidazole (Flagyl) 500 mg in 100 mls @ 100 mls/hr IV Q8H [facility] Last Infusion: 05/05/24 05:13 Dose: Infused Documented By: MAGGIE Ketorolac Tromethamine (Ketorolac Tromethamine 30 Mg/Ml Vial) 30 mg IVPUSH Q6H PRN PRN Reason: Pain, Severe (Pain Scale 7-10) Stop: 05/09/24 02:19 Last Admin: 05/04/24 18:19 Dose: 30 mg Documented By: HO.RAEJ Magnesium Hydroxide (Milk Of Magnesia 30 Ml Oral.Susp) 30 ml PO DAILY PRN PRN Reason: Constipation Melatonin (Melatonin 3 Mg Tablet) 6 mg PO BEDTIME PRN PRN Reason: Insomnia Ondansetron HCl (Ondansetron Hcl 4 Mg/2 Ml Vial) 4 mg IVPUSH Q8H PRN PRN Reason: Nausea and Vomiting Last Admin: 05/04/24 09:48 Dose: 4 mg Documented By: JANESSA Sodium Chloride (0.9 % Sodium Chloride Flush 3 Ml Syringe) 3 ml IVFLUSH QSHIFT [facility] Last Admin: 05/05/24 06:40 Dose: Not Given Documented By: TIGIST Non-Admin Reason: IV Running Labs 05/04/24 04:18 05/04/24 04:18 Labs: Laboratory Results - last 24 hr 05/05/24 05:41 Hold Purple Top SEE NOTE Total Bilirubin 0.7 Direct Bilirubin 0.4 AST 452 H ALT 517 H Alkaline Phosphatase 244 H Total Protein 6.1 L Albumin 3.3 L Procedures Date of Service Date of Service: 05/05/24 Progress Note: A&P Assessment and plan (1) Transaminitis: Status: Acute Assessment and Plan: AST and ALT trending up again No significant pain or tenderness currently No nausea or vomiting Likely liver parenchymal disease No gallstones and ultrasound, gallbladder is contracted GI input with regards to transaminitis Diet as tolerated Time Spent With Patient Time: Total time managing care of this patient today ____ minutes. Quality Stroke Does the patient have a stroke diagnosis?: No VTE Prior VTE?: No VTE Risk Level:: Medical - moderate - high VTE Device Contraindication: Treatment Not Indicated VTE Drug Contraindication: N/A - Med Ordered
[2024-05-05 11:26] VITALS: BP 110/67; PULSE 70; RESP 16; TEMP 36.8; O2SAT 100
--- NOTE | 2024-05-05 11:35 | MHC.CM.PN ---
PER MD ROUNDS PATIENT NOT MEDICALLY CLEARED FOR DC. CM WILL CONTINUE TO FOLLOW.
[2024-05-05 15:18] VITALS: BP 107/57; PULSE 87; RESP 16; TEMP 37.6; O2SAT 98
--- NOTE | 2024-05-05 18:55 | P.PNIM_ITS ---
Subjective Subjective Date of Service: 05/06/24 Interval History: f/u on abdominal pain and elevated lfts she is feeling better but lfts trending up Physical Exam 2 Vital Signs: Vital Signs: Last Vital Signs Temp 99.6 F 05/05/24 15:18 Pulse 87 05/05/24 15:18 Resp 16 05/05/24 15:18 BP 107/57 L 05/05/24 15:18 Pulse Ox 98 05/05/24 15:18 O2 Del Method Room Air 05/05/24 15:18 O2 Flow Rate 99 05/04/24 19:49 BMI result Body Mass Index 20.9 Const: Other: General: AO X 3, no acute distress Resp: CTA bilateral CVS: S1,S2,RRR GI: +BS, NT, no distention Skin: No rash Neuro: motor grossly intact Psych: appropriate affect Objective Data Active Medications Acetaminophen (Acetaminophen 325 Mg Tablet) 650 mg PO Q6H PRN PRN Reason: Pain, Mild (Pain Scale 1-3), fever or headache Calcium Carbonate (Calcium Carbonate 750 Mg Tab.Chew) 750 mg PO Q4H PRN PRN Reason: Heartburn Ceftriaxone Sodium (Ceftriaxone Sodium 1 Gm Vial) 1 gm IVPUSH Q24H [facility] Last Admin: 05/04/24 20:49 Dose: 1 gm Documented By: MAGGIE Heparin Sodium (Porcine) (Heparin Sodium,Porcine 5,000 Unit/Ml Vial) 5,000 unit SUBCUT Q8H [facility] Last Admin: 05/05/24 10:17 Dose: 5,000 unit Documented By: TIGIST Lactated Ringer's (Lr) 1,000 mls @ 100 mls/hr IVCONT .Q10H [facility] Last Admin: 05/05/24 10:16 Dose: 100 mls/hr Documented By: TIGIST Metronidazole (Flagyl) 500 mg in 100 mls @ 100 mls/hr IV Q8H [facility] Last Infusion: 05/05/24 13:15 Dose: Infused Documented By: TIGIST Ketorolac Tromethamine (Ketorolac Tromethamine 30 Mg/Ml Vial) 30 mg IVPUSH Q6H PRN PRN Reason: Pain, Severe (Pain Scale 7-10) Stop: 05/09/24 02:19 Last Admin: 05/04/24 18:19 Dose: 30 mg Documented By: JANESSA Magnesium Hydroxide (Milk Of Magnesia 30 Ml Oral.Susp) 30 ml PO DAILY PRN PRN Reason: Constipation Melatonin (Melatonin 3 Mg Tablet) 6 mg PO BEDTIME PRN PRN Reason: Insomnia Ondansetron HCl (Ondansetron Hcl 4 Mg/2 Ml Vial) 4 mg IVPUSH Q8H PRN PRN Reason: Nausea and Vomiting Last Admin: 05/04/24 09:48 Dose: 4 mg Documented By: JANESSA Sodium Chloride (0.9 % Sodium Chloride Flush 3 Ml Syringe) 3 ml IVFLUSH [facility] Last Admin: 05/05/24 06:40 Dose: Not Given Documented By: TIGIST Non-Admin Reason: IV Running Labs 05/04/24 04:18 05/04/24 04:18 Labs: Laboratory Results - last 24 hr 05/05/24 05:41 Hold Purple Top SEE NOTE Total Bilirubin 0.7 Direct Bilirubin 0.4 AST 452 H ALT 517 H Alkaline Phosphatase 244 H Total Protein 6.1 L Albumin 3.3 L Assessment and Plan (1) Hepatitis: Status: Acute (2) Transaminitis: Status: Acute Plan 18 years old with no significant PMH presents to ED with abdominal pain for 2 days [employer]. Acute Transaminitis, negative hep serology, ultrasound showing a contracted gallbladder with no gallstones, some pericholecystic fluid. Her AST and ALT were markedly, and still trending up -continue empiric abx -surgery following - gi consult for further work up -follow lfts -HIDA scan to rule out cholecystitis -advance diet DVT PPx low risk ambulate The patient will be monitored Quality Stroke Does the patient have a stroke diagnosis?: No VTE Prior VTE?: No VTE Risk Level:: Medical - moderate - high VTE Device Contraindication: Treatment Not Indicated VTE Drug Contraindication: N/A - Med Ordered
--- NOTE | 2024-05-05 19:15 | PM.GICN ---
History of Present Illness Data of Consult Service Date: 05/05/24 Requesting physician: Judah Jasso Primary Care Provider: None Physician HPI Reason for consult: abn LFT 18 year old female with no significant PMH who I am seeing for assessment for abn LFT Pt presents with 2 d hx of upper abdominal pleuritic pain zehra in RUQ worse with breathing and not associated with cough, sputum, fever or nausea or vomiting. Pain not worse with food. She has never had this before but does admit to unintentional weight loss for months prior to this attack. She has fair appetite, currently studying [employer] and lives in [place]. Denies drug use, OTC meds, herbs, foregin travel or multiple partners (has female partner). No sick contacts. SHe denies urine sx, or vaginal discharge, pain. Imaging initially suggestive of possible cholecystitis with thickened wall of GB LABS with raised alk phos, and raised AST, ALT -low hundreds. Review of Systems Review of Systems: Constitutional : + Weight loss, No Fever, No Chills ENT/Mouth : No sore throat, No Rhinorrhea Eyes: No Swelling, No Redness Cardiovascular : No Chest Pain, No SOB, No Edema Respiratory : No Cough, No Sputum, No Wheezing Gastrointestinal : see HPI Genitourinary : NO Dysuria, No Urinary Frequency, No Hematuria, No Urgency Musculoskeletal : no joint pain, No Myalgias, No Joint Swelling Skin : No Skin Lesions, No rash Neuro : No Weakness, No Numbness, No Dizziness, No Headache Psych : No Anxiety/Panic, No Depression Heme/Lymph: No Bruising, No Lymphadenopathy Endocrine : No Polyuria, No Polydipsia All other systems reviewed and are negative. [facility] Family History Pertinent family history: no hx of liver disease, cancer Social History Social History Patient Tobacco Use Status: Current someday Tobacco user Tobacco use type: Cigarette Smoked in Last 30 Days: Yes Patient Interested in Nicotine Replacement: No Patient Given Instructions on How to Stop Smoking: Yes Date Education Initiated: 05/04/24 Second Hand Smoke Exposure: Yes Use of substances other than those prescribed or required for medical reasons: Yes Substance Use Type: Marijuana Currently Displaying Signs/Symptoms of Drug Intoxication Withdrawal: No Advance Directives: No Advance Directives Information Provided: No Advance Directives on File: No Do you have a plan to hurt others: No Plan service: No Meds Allergies Allergy/AdvReac Type Severity Reaction Status Date / Time No Known Allergies Allergy Verified 05/03/24 13:33 Active Medications: Current Medications Acetaminophen (Acetaminophen 325 Mg Tablet) 650 mg PO Q6H PRN PRN Reason: Pain, Mild (Pain Scale 1-3), fever or headache Calcium Carbonate (Calcium Carbonate 750 Mg Tab.Chew) 750 mg PO Q4H PRN PRN Reason: Heartburn Ceftriaxone Sodium (Ceftriaxone Sodium 1 Gm Vial) 1 gm IVPUSH Q24H [facility] Last Admin: 05/04/24 20:49 Dose: 1 gm Heparin Sodium (Porcine) (Heparin Sodium,Porcine 5,000 Unit/Ml Vial) 5,000 unit SUBCUT Q8H [facility] Last Admin: 05/05/24 10:17 Dose: 5,000 unit Lactated Ringer's (Lr) 1,000 mls @ 100 mls/hr IVCONT .Q10H [facility] Last Admin: 05/05/24 10:16 Dose: 100 mls/hr Metronidazole (Flagyl) 500 mg in 100 mls @ 100 mls/hr IV Q8H [facility] Last Infusion: 05/05/24 13:15 Dose: Infused Ketorolac Tromethamine (Ketorolac Tromethamine 30 Mg/Ml Vial) 30 mg IVPUSH Q6H PRN PRN Reason: Pain, Severe (Pain Scale 7-10) Stop: 05/09/24 02:19 Last Admin: 05/04/24 18:19 Dose: 30 mg Magnesium Hydroxide (Milk Of Magnesia 30 Ml Oral.Susp) 30 ml PO DAILY PRN PRN Reason: Constipation Melatonin (Melatonin 3 Mg Tablet) 6 mg PO BEDTIME PRN PRN Reason: Insomnia Ondansetron HCl (Ondansetron Hcl 4 Mg/2 Ml Vial) 4 mg IVPUSH Q8H PRN PRN Reason: Nausea and Vomiting Last Admin: 05/04/24 09:48 Dose: 4 mg Sodium Chloride (0.9 % Sodium Chloride Flush 3 Ml Syringe) 3 ml IVFLUSH QSHIFT [facility] Last Admin: 05/05/24 06:40 Dose: Not Given Home Medications ?Medication ?Instructions ?Recorded ?Confirmed ?Last Taken ?Type No Known Home Meds 05/04/24 05/04/24 Unknown History Physical Exam Vital Signs: Vital Signs: Last Vital Signs Temp 99.6 F 05/05/24 15:18 Pulse 87 05/05/24 15:18 Resp 16 05/05/24 15:18 BP 107/57 L 05/05/24 15:18 Pulse Ox 98 05/05/24 15:18 O2 Del Method Room Air 05/05/24 15:18 O2 Flow Rate 99 05/04/24 19:49 BMI result Body Mass Index 20.9 EXAM: GENERAL: The patient is thin VITAL SIGNS:see workflow HEENT: Nonicteric sclerae, PERRLA, EOMI. Oropharynx clear, small tonsil noted without exudate. Moist mucous membranes. Conjunctivae with mild pllor. No thyroid mass. CHEST: Chest wall is nontender. HEART: Regular rate and rhythm without murmurs. LUNGS: Clear to auscultation bilaterally. ABDOMEN: Soft, positive bowel sounds, mildly tender, ruq no organomegaly.no flank tenderness SKIN: No rash, no excessive bruising, petechiae, or purpura. NEUROLOGIC: Cranial nerves II-XII intact without motor/sensory deficit. Psych: normal affect Results Labs 05/04/24 04:18 05/04/24 04:18 Labs: Liver Function 05/05/24 Range/Units 05:41 Total Bilirubin 0.7 (0.0-1.0) mg/dL Direct Bilirubin 0.4 (0.0-0.5) mg/dL AST 452 H (5-31) U/L ALT 517 H (0-31) U/L Alkaline Phosphatase 244 H (39-117) U/L Albumin 3.3 L (3.5-5.0) g/dL Imaging CT scan - abdomen: Attestation: I personally reviewed and interpreted this imaging study as follows: (pericholecystic fluid, scoliosis, ovarian cyst, hepatosplenomegaly-mild ) Assessment and Plan (1) Transaminitis: Status: Acute Plan 1/ Pleuritic pain RUQ with imaging showing pericholcystic fluid and raised LFT, ddx: parenchymal liver disease zehra viral hepatitis, eg EBV, other posisbility could be acalculous cholecystitis - less likely tiffany (usu low lak phos and raised bili), AIH. No budd chiari noted on exam. She also has bicytopenia and small amount of schistocytes, but not quite typical presentation of TTP. Other dx: hyperthyroid,celiac disease, hematological d/o, infiltrative disease like amyloid or sarcoid 2/ unintentional weight loss, uncertain if related to above or secondary process, she denies any psych complaints, PLAN: 1/ check hemolysis labs, b12, folate, 2/ TSH, celiac 3/ CK, LDH, smear pending 4/ HIV 5/ EBV, HSV, Hep C PCR 6/ if ongoing sx then HIDA - maybe liver bx as well if ongoing diagnostic uncertainty Procedures Date of Service Date of Service: 05/05/24
[2024-05-05 19:54] VITALS: BP 101/63; PULSE 88; RESP 18; TEMP 36.9; O2SAT 99
[2024-05-05 20:25] LABS: Monotest Negative (Negative)
[2024-05-05 20:34] LABS: C Reactive Protein 0.36 mg/dL (< or = 0.50); Lactate Dehydrogenase 688 U/L (122-220)
[2024-05-05] MEDS: cefTRIAXone sodium 1 GM VIAL IVPUSH (20:41)
[2024-05-05 20:47] LABS: Ferritin 36 ng/mL (10-122)
[2024-05-05 20:48] LABS: TSH reflex Free T4 1.16 uIU/mL (0.32-4.0)
[2024-05-05 20:58] LABS: Acetaminophen LAB < 3 mcg/mL (<30)
[2024-05-05 21:03] LABS: Folate 11.5 ng/mL (> or = 4.0); Vitamin B12 914 pg/mL (200-900)
[2024-05-05] MEDS: ondansetron HCL 4 MG/2 ML VIAL IVPUSH (22:05)
[2024-05-05 23:54] VITALS: BP 107/71; PULSE 75; RESP 20; TEMP 37.3
[2024-05-06] MEDS: Lactated Ringers 1,000 ML 100 ML IVCONT (01:04)
[2024-05-06 03:32] VITALS: BP 106/66; PULSE 71; RESP 20; TEMP 36.6; O2SAT 99
[2024-05-06] MEDS: Heparin Sodium,Porcine 5,000 UNIT/ML VIAL 5000 UNIT SUBCUT (03:40)
[2024-05-06] MEDS: metroNIDAZOLE/NS 500 MG/100 ML PIGGYBACK 100 MG IV ×3 (03:44→21:27)
[2024-05-06 04:23] LABS: HIV AB/AG Nonreactive (Nonreactive); HIV Num 1 0.07 S/CO (0.00-0.99)
[2024-05-06 07:25] LABS: Alanine Aminotransferase 555 U/L (0-31); Albumin Level 3.2 g/dL (3.5-5.0); Alkaline Phosphatase 237 U/L (39-117); Aspartate Amino Transferase 473 U/L (5-31); Bilirubin Direct 0.3 mg/dL (0.0-0.5); Bilirubin Total 0.6 mg/dL (0.0-1.0); Total Protein 5.9 g/dL (6.5-8.0)
[2024-05-06 07:28] LABS: Haptoglobin 158 mg/dL (35-250)
[2024-05-06 07:48] VITALS: BP 112/62; PULSE 71; RESP 16; TEMP 36.9; O2SAT 98
[2024-05-06 15:10] VITALS: BP 116/70; PULSE 70; RESP 16; TEMP 36.9; O2SAT 100
[2024-05-06] MEDS: cefTRIAXone sodium 1 GM VIAL IVPUSH (19:24)
[2024-05-06 19:41] VITALS: BP 111/66; PULSE 75; RESP 20; TEMP 36.6; O2SAT 100
[2024-05-06] MEDS: ondansetron HCL 4 MG/2 ML VIAL IVPUSH (21:31)
[2024-05-07] MEDS: metroNIDAZOLE/NS 500 MG/100 ML PIGGYBACK 100 MG IV ×3 (03:40→20:46)
[2024-05-07 04:00] VITALS: BP 109/57; PULSE 84; RESP 20; TEMP 36.8; O2SAT 100
[2024-05-07 08:00] VITALS: BP 112/65; PULSE 77; RESP 18; TEMP 36.3; O2SAT 98
[2024-05-07 10:34] LABS: Hemoglobin 10.1 g/dl (12.0-16.0); Mean Corpuscular HGB Conc 31.6 g/dl (31.0-35.0); Mean Corpuscular Hemoglobin 24.5 pg (27.0-33.0); Mean Corpuscular Volume 77.7 fL (80.0-98.0); Platelet Count 184 X10*3/uL (160-400); Red Blood Count 4.12 X10*6/uL (4.20-5.50); Red Cell Distribution Width 16.5 % (11.0-16.0); White Blood Count 7.4 X10*3/uL (4.8-10.8)
[2024-05-07 11:11] LABS: Alanine Aminotransferase 575 U/L (0-31); Albumin Level 3.6 g/dL (3.5-5.0); Alkaline Phosphatase 226 U/L (39-117); Aspartate Amino Transferase 452 U/L (5-31); Bilirubin Direct 0.3 mg/dL (0.0-0.5); Bilirubin Total 0.7 mg/dL (0.0-1.0); Total Protein 6.7 g/dL (6.5-8.0)
[2024-05-07] MEDS: Ketorolac Tromethamine 30 MG/ML VIAL IVPUSH (15:32)
[2024-05-07] MEDS: ondansetron HCL 4 MG/2 ML VIAL IVPUSH (15:32)
[2024-05-07] MEDS: 0.9 % Sodium Chloride Flush 3 ML SYRINGE IVFLUSH ×2 (15:32→20:44)
[2024-05-07 15:40] VITALS: BP 102/64; PULSE 71; RESP 20; TEMP 37.1; O2SAT 100
[2024-05-07 19:49] VITALS: BP 104/70; PULSE 80; RESP 20; TEMP 37.2; O2SAT 98
[2024-05-07] MEDS: cefTRIAXone sodium 1 GM VIAL IVPUSH (20:42)
[2024-05-08] MEDS: Ketorolac Tromethamine 30 MG/ML VIAL IVPUSH (00:56)
[2024-05-08 03:14] VITALS: BP 99/54; PULSE 53; RESP 16; TEMP 36; O2SAT 98
[2024-05-08] MEDS: metroNIDAZOLE/NS 500 MG/100 ML PIGGYBACK 100 MG IV (04:37)
[2024-05-08 07:15] VITALS: BP 100/59; PULSE 56; RESP 16; TEMP 37; O2SAT 98
[2024-05-08] MEDS: 0.9 % Sodium Chloride Flush 3 ML SYRINGE IVFLUSH (08:01)
[2024-05-08 08:03] LABS: Alpha 1 Anti-trypsin 169 mg/dL (83-199); Ceruloplasmin 29 mg/dL (14-48); IgA 200 mg/dL (47-310); IgG 1431 mg/dL (600-1640); IgM 177 mg/dL (50-300)
[2024-05-08 09:51] LABS: Alanine Aminotransferase 434 U/L (0-31); Albumin Level 3.4 g/dL (3.5-5.0); Alkaline Phosphatase 201 U/L (39-117); Aspartate Amino Transferase 257 U/L (5-31); Bilirubin Direct 0.2 mg/dL (0.0-0.5); Bilirubin Total 0.4 mg/dL (0.0-1.0); Total Protein 6.3 g/dL (6.5-8.0)
--- NOTE | 2024-05-08 10:27 | MHC.CLN ---
NUTRITION CONSULT NUTRITION SCREEN SCORE. DIET=REGULAR. BMI WITHIN NORMAL LIMITS. MOST RECENT PO APPEARS TO BE GOOD, USUALLY 75-100%. NO ADDITIONAL NUTRITION INTERVENTIONS AT THIS TIME.
--- NOTE | 2024-05-08 10:42 | P.PNGI_ITS ---
Subjective Subjective Date of Service: 05/08/24 Interval History: better than last week still not 100% has some nausea no fever labs pending Critical Care Time (minutes): 0 Physical Exam 2 Vital Signs: Vital Signs: Last Vital Signs Temp 98.6 F 05/08/24 07:15 Pulse 56 05/08/24 07:15 Resp 16 05/08/24 07:15 BP 100/59 L 05/08/24 07:15 Pulse Ox 98 05/08/24 07:15 O2 Del Method Room Air 05/08/24 07:15 O2 Flow Rate 99 05/04/24 19:49 BMI result Body Mass Index 20.9 EXAM: GENERAL: The patient is well developed and nontoxic. VITAL SIGNS:see workflow HEENT: Nonicteric sclerae, PERRLA, EOMI. Oropharynx clear. Moist mucous membranes. Conjunctivae appear well perfused. No thyroid mass. CHEST: Chest wall is nontender. HEART: Regular rate and rhythm without murmurs. LUNGS: Clear to auscultation bilaterally. ABDOMEN: Soft, positive bowel sounds, mildly tender ruq, no organomegaly.no flank tenderness SKIN: No rash, no excessive bruising, petechiae, or purpura. NEUROLOGIC: Cranial nerves II-XII intact without motor/sensory deficit. Psych: normal affect Objective Data Labs 05/07/24 10:01 05/04/24 04:18 Labs: Laboratory Results - last 24 hr 05/05/24 05/07/24 05/08/24 19:49 10:01 09:14 Total Bilirubin 0.7 0.4 Direct Bilirubin 0.3 0.2 AST 452 H 257 H ALT 575 H 434 H Alkaline Phosphatase 226 H 201 H Total Protein 6.7 6.3 L Albumin 3.6 3.4 L Esjlc-4-Olfeofqmssv 169 Ceruloplasmin 29 IgG Total 1431 IgA Total 200 IgM 177 Procedures Date of Service Date of Service: 05/08/24 Progress Note: A&P Assessment and plan (1) Transaminitis: Status: Acute Plan 1/ Abn LFT< prob viral infectious hepatitis, most prob EBV PLAN: 1/ await labs, serolgies, if not improving then liver bx Time Spent With Patient Time: Total time managing care of this patient today ____ minutes. Quality Stroke Does the patient have a stroke diagnosis?: No VTE Prior VTE?: No VTE Risk Level:: Medical - moderate - high VTE Device Contraindication: Treatment Not Indicated VTE Drug Contraindication: N/A - Med Ordered
[2024-05-08 11:05] LABS: INTERNATIONAL NORM RATIO 1.2 (0.9-1.1); Prothrombin Time 13.5 SEC (10.9-12.4)
--- NOTE | 2024-05-08 11:37 | P.DS_ITS ---
DS: Providers Provider Date of Service: 05/08/24 Date of admission: 05/07/24 08:59 Primary care physician: None Physician Consults: 05/04/24 02:20 Consult to General Surgery Routine Consulting Provider[place] [facility] [place] [facility] Reason for consultation: RUQ pain with transaminitis 05/05/24 09:02 Consult to Gastroenterology Routine Consulting Provider: Sherry Lr Reason for consultation: Acute hepatit Has provider been notified: No DS: Diagnosis Discharge Diagnosis (1) Transaminitis: Status: Acute DS: Summary Hospital Course Hospital Course: Admission HPI Chief Complaint: Abd pain, nausea A 18 years old with no significant PMH presents to ED with abdominal pain for 2 days [employer]. The patient reports having pain and nausea after having food at an [employer] that she had tried before. No chest pain, palpitations, SOB, no vomiting or diarrhea or urinary symptoms but having nausea. her LMP was 1 week ago. An US and CT scan of abdomen showing abnormal gallbladder with thickened wall with no significant stones but suggestive of acute cholecystitis as it reports pericholecystic fluids and positive sonographine Camargo signs. Discussed with surgeon who did not think it is a real acute cholecystitis. Will be admitted for further work up and management. Hospital course: The patient presented with abdominal pain, and initial workup showed elevated LFTs. A CT scan was equivocal for acute cholecystitis (CT findings detailed below). She was started on IV antibiotics for suspected acute cholecystitis and evaluated by both Surgery and GI teams. An ultrasound revealed a contracted gallbladder with no signs of cholecystitis, and a HIDA scan was negative for acute cholecystitis. GI (Dr. Lr) has been monitoring her case. The patient is HIV-negative, and serologies for Hepatitis A, B, and C are negative. Additional tests, including Monospot, were negative. EBV, CMV, and Hepatitis E serologies are pending. Antibiotics were discontinued as there is no evidence of acute cholecystitis. The current working diagnosis is viral hepatitis, with LFTs trending downward (see values below). If LFTs remain elevated, the next step will be a liver biopsy. US: Gallbladder is contracted with circumferential wall thickening and pericholecystic fluid. No sonographic findings of gallstones. Positive sonographic Cmaargo sign. These findings are equivocal for acute cholecystitis. CT of abdomen and Pelvis: 1. Abnormal gallbladder with markedly thickened wall and enhancing mucosa. No calcified gallstones are seen. No inflammatory changes are seen in the pericholecystic fat. Findings are certainly suggestive of acute cholecystitis in the correct clinical setting. 2. Mild hepatosplenomegaly. 3. Other incidental findings as described above HIDA Scan No evidence of acute or chronic cholecystitis. Gallbladder ejection fraction of 71%. [facility] Cardiovascular Service Line: Dr. Sherry Lr [phone] Time Attestation Discharge Coordination Time (in mins): 45 Quality: Safe Use of Opioids Does Pt have an Active Cancer Diagnosis on the Problem List?: No Quality: Stroke Does the patient have a stroke diagnosis?: No Physical Exam 2 Vital Signs: Vital Signs: Last Vital Signs Temp 98.6 F 05/08/24 07:15 Pulse 56 05/08/24 07:15 Resp 16 05/08/24 07:15 BP 100/59 L 05/08/24 07:15 Pulse Ox 98 05/08/24 07:15 O2 Del Method Room Air 05/08/24 07:15 O2 Flow Rate 99 05/04/24 19:49 BMI result Body Mass Index 20.9 DS: Data Data Completed and Pending Labs on day of discharge: Laboratory Results - last 24 hr 05/03/24 05/05/24 05/08/24 14:17 19:49 09:14 Smear Path Review SEE NOTE PT INR Total Bilirubin 0.4 Direct Bilirubin 0.2 AST 257 H ALT 434 H Alkaline Phosphatase 201 H Total Protein 6.3 L Albumin 3.4 L Fxaxx-6-Vlapkaazuiv 169 Ceruloplasmin 29 IgG Total 1431 IgA Total 200 IgM 177 05/08/24 10:48 Smear Path Review PT 13.5 H INR 1.2 H Total Bilirubin Direct Bilirubin AST ALT Alkaline Phosphatase Total Protein Albumin Krszz-0-Bepebypqypp Ceruloplasmin IgG Total IgA Total IgM Discharge Plan Discharge Anticipated Discharge Date/Time: 05/08/24 11:20 Patient Disposition: Home, Self-Care Discharge Diagnosis: Acute Hepatitis Referrals: Physician,None [Primary Care Provider] - 1 Week Discharge Medications: New ondansetron 4 mg tablet,disintegrating 4 mg PO Q8H PRN (Reason: nausea and vomiting) Qty: 20 0RF No Action No Known Home Meds Discharge Orders: Discharge Order (Routine); Ordered 05/08/24 Ordered By: Judah Mlapa Diet: Advance to usual diet Activity on Discharge: As tolerated Stand Alone Forms: Patient Portal Discharge page Print Language: Armenian Care Plan Goals: Full reocvery from acute hepatitis (Inflammation of the liver) Health Concerns: Acute hepatitis (Imflammation of the liver) Plan of Treatment: You need to follow with a liver Doctor Feel free to follow up with Dr. Lr and if you choose to have another liver doctor, be sure to ask them to request your record to see what testing has been done here. You will need liver labs checked again within a week Assessment: see above Patient Instructions: Hepatitis B (GEN)
--- NOTE | 2024-05-08 11:50 | MHC.CM.PN ---
Patient medically cleared for dc home self care via private transport.
[2024-05-08 15:43] LABS: CMV DNA PCR Qn Source BLOOD; CMV DNA Qn PCR NOT DETECTED Log IU/mL (NOT DETECTED); CMV DNA Qn Real Time PCR NOT DETECTED (NOT DETECTED)
[2024-05-08 20:29] LABS: Transglutaminase IgA <1.0 U/mL
[2024-05-08 22:04] LABS: EBV-NA IgG Index <18.00 U/mL
[2024-05-09 15:33] LABS: HCV Log PCR <1.18 NOT DETECTED Log IU/mL (NOT DETECTED); HepC Viral Load <15 NOT DETECTED IU/mL (NOT DETECTED)
[2024-05-11 11:34] LABS: Anti Nuclear Antibody Screen NEGATIVE (NEGATIVE)
[2024-05-11 18:29] LABS: Smooth Muscle Antibody <20 U (<20)
[2024-05-12 17:48] LABS: Hepatitis E Virus HEV IgG NOT DETECTED; Hepatitis E Virus HEV IgM NOT DETECTED
[2024-05-15 12:27] LABS: Mitochondrial Antibodies NEGATIVE (NEGATIVE)
== END 2024-05-08 16:05 | disposition home or self-care (01) ==
LOC: HO.ED 05-04 01:28 → HO.EDOVER 05-04 02:49 → HO.S3 05-04 07:33
PROVIDERS: Internal Medicine Gastroenterology; Physician Assistant Medical; Admitting Provider Student in an Organized Health Care Education/Training Program; Emergency Provider Emergency Medicine Emergency Medical Services; Visit Provider Internal Medicine
DX: B17.9 Acute viral hepatitis, unspecified (principal); F17.210 Nicotine dependence, cigarettes, uncomplicated; Z71.6 Tobacco abuse counseling
CPT/HCPCS: 36415; 74177; 76705; 78227; 80053; 80076; 80143; 81003; 81025; 82103; 82390; 82550; 82607; 82728; 82746; 82784; 83010; 83615; 83690; 83735; 84443; 84484; 85007; 85027; 85610; 86015; 86038; 86140; 86308; 86364; 86381; 86664; 86665; 86704; 86706; 86708; 86709; 86790; 86803; 87340; 87389; 87497; 87522; 93005; 99221; 99285; A9537; J0696; J1644; J1836; J1885; J2405; J2805; J7120; Q9967

== ENCOUNTER → 2024-05-03 13:09 | Outpatient (BNV) | payer SELFPAY | PROVIDERS: Visit Provider Internal Medicine Cardiovascular Disease | DX: R07.9 Chest pain, unspecified (principal) | CPT/HCPCS: 93010 ==

== ENCOUNTER → 2024-05-03 20:23 | Outpatient (BNV) | payer BC, SELFPAY | PROVIDERS: Emergency Provider Emergency Medicine Emergency Medical Services; Visit Provider Student in an Organized Health Care Education/Training Program | DX: K75.9 Inflammatory liver disease, unspecified (principal); R74.01 Elevation of levels of liver transaminase levels | CPT/HCPCS: 99222; 99232; 99499 ==

== ENCOUNTER → 2024-05-04 02:20 | Outpatient (BNV) | payer BC, SELFPAY | PROVIDERS: Admitting Provider Student in an Organized Health Care Education/Training Program; Emergency Provider Emergency Medicine Emergency Medical Services; Visit Provider Surgery | DX: R74.01 Elevation of levels of liver transaminase levels (principal) | CPT/HCPCS: 99232; 99253 ==

== ENCOUNTER → 2024-05-04 02:20 | Outpatient (BNV) | payer BC, SELFPAY | PROVIDERS: Admitting Provider Student in an Organized Health Care Education/Training Program; Emergency Provider Emergency Medicine Emergency Medical Services; Visit Provider Internal Medicine Gastroenterology | DX: R74.01 Elevation of levels of liver transaminase levels (principal) | CPT/HCPCS: 99223; 99232 ==